=== PATIENT | male | born 1995 | race Caucasian/White ===

== ENCOUNTER 2025-04-10 22:06 | Emergency (ER) | payer OTHER, SELFPAY ==
[2025-04-10 22:08] VITALS: BP 139/75; PULSE 67; RESP 20; TEMP 36.6; O2SAT 97; BMI 32.9
--- OUTSIDE RECORDS SUMMARY | 2025-04-10 22:30 | XMS_ITS | Encounter Summary ---
Author Organization [facility] Address [address] [place] [address] Phone Care Team Providers Care County Engineer Name Role Phone Sam Case MD Primary Care Provider [phone] Encounter Details Date Type Department Care Team (Late st Contact Info) Description 05/26/2011 Conversion Encounter [facility] [address] [place] [address] [place] [id number] Social History Tobacco Use Types Packs/Day Years Used Date Smoking Tobacco: Never Assessed Sex and Gender Information Value Date Recorded Sex Assigned at Not on file Legal Sex Male 6:12 PM EDT Gender Identity Not on file Sexual Orientation Not on file documented as of this encounter Plan of Treatment Not on file documented as of this encounter Visit Diagnoses Not on filedocumented in this encounter Care Teams County Engineer Relationship Specialty Start Date End Date Sam Case MD [address] [place] [address] [place] [id number] PCP - General 11/15/17 documented as of this encounter
--- OUTSIDE RECORDS SUMMARY | 2025-04-10 22:30 | XMS_ITS | Clinical Summary ---
Author Organization [facility] Address [address] [place] [id number] Phone Care Team Providers Care Nurses' Aide Name Role Phone Sam Case MD Primary Care Provider Immunizations Immunization Administration Dates Next Due Hep A, ped/adol 05/30/2011,06/09/2010 Influenza, injectable, trivalent 05/09/2008 Meningococcal Conj (Menactra) MCV4P 04/26/2007 Tdap 04/19/2006 Varicella 04/26/2007,04/04/1996 Social History Tobacco Use Types Packs/Day Years Used Date Smoking Tobacco: Never Comments:Never Smoker Sex and Gender Information Value Date Recorded Sex Assigned at Not on file Legal Sex Male 6:12 PM EDT Gender Identity Not on file Sexual Orientation Not on file Last Filed Vital Signs Vital Sign Reading Time Taken Comments Blood Pressure - - Pulse 88 06/01/2012 8:34 AM EST Temperature 37.1 C (98.7 F) 06/01/2012 8:34 AM EST Respiratory Rate - - Oxygen Saturation - - Inhaled Oxygen Concentration - - Weight 78.9 kg (174 lb) 06/01/2012 8:34 AM EST Height 168.9 cm (5' 6.5 ) 06/01/2012 8:34 AM EST Body Mass Index 27.66 06/01/2012 8:34 AM EST Plan of Treatment Health Maintenance Due Date Last Done Comments MMR Vaccines (1 of 1 - Standard series) 05/24/2007 Hepatitis B Vaccines (1 of 3 - 19+ 3-dose series) 2014 DTaP,Tdap,and Td Vaccines (2 - Td or Tdap) 04/19/2016 04/19/2006 HPV Vaccines (1 - 3-dose SCD M series) 2022 Influenza Vaccines (#1) 2025 05/09/2008 COVID-19 Vaccine (1 - 2024-2 6 season) 2025 Meningococcal Vaccine Aged Out 04/26/2007 No damaris yasmine eligible based on patient's age to complete this topic Varicella Vaccines Completed 04/26/2007, 04/04/1996 Hepatitis A Vaccines Completed 05/30/2011, 06/09/2010 HIB Vaccines Aged Out No longer eligi ble based on patient's age to complete this topic IPV Vaccines Aged Out No longer eligi ble based on patient's age to complete this topic Men B Vaccine Aged Out No longer elig ible based on patient's age to complete this topic Pneumococcal Vaccine Aged Out No long er eligible based on patient's age to complete this topic Care Teams Nurses' Aide Relationship Specialty Start Date End Date Sam Case MD [facility] [facility] [place] [address] PCP - General 11/15/17
--- NOTE | 2025-04-10 22:44 | ED.MEDCLEAR ---
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 The patient immediately washed the area, but presents to the ED for post exposure prophylaxis. The patient denies any acute somatic complaint. Related Information Previous Rx's ?Medication ?Instructions ?Recorded bictegravir 50 mg-emtricitabine 1 tab PO DAILY #28 tabs 04/10/25 200 mg-tenofovir alafenam 25 mg tablet (Biktarvy) Allergies Allergy/AdvReac Type Severity Reaction Status Date / Time No Known Allergies Allergy Verified 04/10/25 22:10 Review of Systems Review of Systems: Yes all other systems are reviewed and are negative PMFSH Social History Social History Advance Directives: No Advance Directives Information Provided: No Physical Exam Vital Signs: Vital Signs: Last Vital Signs Temp 97.8 F 04/10/25 22:08 Pulse 67 04/10/25 22:08 Resp 20 04/10/25 22:08 BP 139/75 04/10/25 22:08 Pulse Ox 97 04/10/25 22:08 O2 Del Method Room Air 04/10/25 22:08 BMI result Body Mass Index 32.9 CONSTITUTIONAL: The patient appears non-toxic, well nourished and in no acute distress. Vital signs as documented. HEAD: Atraumatic, normocephalic. EYES: EOMs grossly intact, pupils equal, conjunctiva clear, no exudate. ENT: Nares patent, no discharge. Airway patent, no audible stridor, visible mucosa is pink and moist without noted lesions. NECK: trachea is midline, no obvious masses or gross abnormalities. CHEST: Symmetric movement, normal appearance. LUNGS: Non-labored work of breathing. CARDIAC: No evidence of hypoperfusion. ABDOMEN: Nondistended, no obvious injury. : Deferred. EXTREMITIES: Punctate lesion consistent with a needlestick noted to the pad of the distal phalanx of the left index finger, no active bleeding, distal CSM intact. Moves all extremities spontaneously without reported pain. No obvious injury or deformity noted. NEURO: Alert and oriented x3, CN II-XII appear grossly intact. Cerebellar Functioning grossly intact. Speech clear and appropriate. SKIN: Warm, dry, color appropriate. No rashes or lesions noted. 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 The patient immediately washed the area, but presents to the ED for post exposure prophylaxis. The patient denies any acute somatic complaint. Exam demonstrates a single punctate lesion of the center of the pad of the left index finger, no other acute findings, no active bleeding. Source patient is unknown. The patient will be treated with PEP, we will provide post exposure medication kit, and we will obtain baseline laboratory testing. Admission/Observation Consideration of admission/observation: Escalation of care including admission/observation considered Lab Data 04/10/25 23:09 04/10/25 23:09 Labs: Lab Results 04/10/25 Range/Units 23:09 WBC 9.6 (4.8-10.8) X10*3/uL RBC 5.38 (4.60-5.80) X10*6/uL Hgb 15.4 (14.0-18.0) g/dl Hct 42.9 (42.0-52.0) % MCV 79.7 L (80.0-98.0) fL MCH 28.6 (27.0-33.0) pg MCHC 35.9 (31.0-36.0) g/dl RDW 11.8 (11.0-16.0) % Plt Count 172 (160-400) X10*3/uL MPV 9.4 (9.4-12.4) fL Immature Gran % (Auto) 0.5 H (0.0-0.4) % Neut % (Auto) 67.6 (45-73) % Lymph % (Auto) 24.1 (20-40) % [place] % (Auto) 6.0 (2-11) % Eos % (Auto) 1.6 (0-4) % Baso % (Auto) 0.2 (0-2) % Lymph # (Auto) 2.3 (1.2-4.9) X10*3/uL [place] # (Auto) 0.6 (0.1-1.2) X10*3/uL Eos # (Auto) 0.2 (0.0-0.4) X10*3/uL Baso # (Auto) 0.0 (0.0-0.2) X10*3/uL Abs Immat Gran (auto) 0.05 H (0.00-0.03) X10*3/uL Absolute Neuts (auto) 6.5 (2.0-8.3) x10*3/uL Absolute Nucleated RBC 0.000 (0.0-0.012) X10*3/uL Nucleated RBC % (auto) 0.0 (0.0-0.2) /100WBC Total Bilirubin 1.0 (0.0-1.0) mg/dL Lipase 33 (8-78) U/L Discharge Plan Discharge Clinical Impression: Exposure to body fluid due to accidental needlestick injury Patient Disposition: Home, Self-Care Instructions: Needle Stick Injuries (ED) Additional Instructions: Thank you for choosing [facility]'s Emergency Department for your care today. At this time there is no indication for admission to the hospital or continued ED observation, and it is safe to discharge you home. As a result of your accidental needlestick today we are treating you preventatively with post exposure prophylaxis with a medication called Angelarvy. We have provided you with a post exposure medication kit. Please take this as prescribed for the next 28 days. We have obtained multiple blood samples for baseline testing. Please follow up with the your occupational health provider for continued monitoring, review of your laboratory testing, and repeat testing at recommended intervals. Please also follow up with your primary care physician for re-evaluation, additional management of your symptoms, and continued preventative care. If you do not have a primary care physician, please call the [facility] at [phone] to establish a new primary care physician. While waiting to establish your new primary care physician, you can call our [facility] at [phone] for non-emergency needs. Please return to the emergency department if you develop a fever over 100.4 that does not improve with Tylenol or Ibuprofen, recurrent vomiting, or any other new or worsening symptoms or concerns. Prescriptions: New Biktarvy 50-200-25 mg tablet 1 tab PO DAILY Qty: 28 0RF Print Language: Spanish
[2025-04-10 23:13] LABS: MANUAL DIFF FLAG NO
[2025-04-10 23:14] LABS: Hematocrit 42.9 % (42.0-52.0); Hemoglobin 15.4 g/dl (14.0-18.0); Imm Gran Abs Auto 0.05 X10*3/uL (0.00-0.03); Imm Gran Pct Auto 0.5 % (0.0-0.4); Lymphocytes Absolute Auto 2.3 X10*3/uL (1.2-4.9); Mean Corpuscular HGB Conc 35.9 g/dl (31.0-36.0); Mean Corpuscular Hemoglobin 28.6 pg (27.0-33.0); Mean Corpuscular Volume 79.7 fL (80.0-98.0); NRBC Abs Auto 0.000 X10*3/uL (0.0-0.012); NRBC Pct Auto 0.0 /100WBC (0.0-0.2); Platelet Count 172 X10*3/uL (160-400); Red Blood Count 5.38 X10*6/uL (4.60-5.80); White Blood Count 9.6 X10*3/uL (4.8-10.8)
[2025-04-10 23:26] LABS: Lipase 33 U/L (8-78)
[2025-04-10 23:28] LABS: Alanine Aminotransferase 31 U/L (0-40); Albumin Level 4.8 g/dL (3.5-5.0); Alkaline Phosphatase 45 U/L (39-117); Anion Gap 13 (12-20); Aspartate Amino Transferase 24 U/L (5-37); Blood Urea Nitrogen 22 mg/dL (9-16); Calcium 9.4 mg/dL (8.4-10.2); Carbon Dioxide 24 mmol/L (22-29); Chloride 107 mmol/L (96-108); Creatinine Clr Calc Pharmacy 90.6; Estimated Glomerular Filt Rate > 60; Potassium 4.2 mmol/L (3.3-5.1); Sodium 140 mmol/L (135-145); Total Protein 7.3 g/dL (6.5-8.0)
[2025-04-10] MEDS: Bictegrav/Emtricit/Tenofov Ala TABLET 1 TAB PO (23:43)
[2025-04-10 23:46] VITALS: BP 139/75; PULSE 67; RESP 20; TEMP 36.6; O2SAT 97
[2025-04-11 05:53] LABS: HBS Num1 25.98 mIU/mL (0-7.99); HBc Num1 0.11 S/CO (0.00-0.79); HBsAGNum1 0.46 S/CO (0.00-0.99); HIV Num 1 0.06 S/CO (0.00-0.99); Hepatitis B Surface Antigen Negative (Negative); ~HepC Num1 0.08 S/CO (0.00-0.79); ~Hepatitis B Surface Antibody REACTIVE (Nonreactive); ~Hepatitis C Antibody Nonreactive (Nonreactive)
== END 2025-04-10 23:46 | disposition home or self-care (01) ==
PROVIDERS: Physician Assistant; Emergency Provider Emergency Medicine
DX: Z20.828 Contact with and (suspected) exposure to other viral communicable diseases (principal); Z79.899 Other long term (current) drug therapy; Z20.6 Contact with and (suspected) exposure to human immunodeficiency virus [HIV]
CPT/HCPCS: 36415; 80053; 82247; 82248; 83690; 85025; 86704; 86706; 86803; 87340; 87389; 99282; 99283